=== PATIENT | male | born 1985 | race African-American/Black ===

== ENCOUNTER 2019-02-21 02:29 | Emergency (ER) | payer OTHER ==
[~2019-02-21] VITALS: Ht 170.2 cm; Wt 72.0 kg
[2019-02-21 02:36] VITALS: BP 125/77
[2019-02-21] MEDS ORDERED: BACITRACIN ZINC OINT UDPKT TOP ONE (03:00)
[2019-02-21] MEDS ORDERED: LIDOCAINE HCL/PF 1% 10 MG/ML 5ML VIAL IJ ONE (03:00)
== END 2019-02-21 05:57 | disposition home or self-care (01) ==
LOC: ER 02:29
DX: S41.111A Laceration without foreign body of right upper arm, initial encounter (principal); S60.221A Contusion of right hand, initial encounter; S50.312A Abrasion of left elbow, initial encounter; Y04.0XXA Assault by unarmed brawl or fight, initial encounter; Y93.89 Activity, other specified; Y92.488 Other paved roadways as the place of occurrence of the external cause
CPT/HCPCS: 73130; 99283; A4217; Z7610

== ENCOUNTER 2019-03-04 09:01 | Emergency (ER) | payer MEDICAID, OTHER ==
[~2019-03-04] VITALS: Ht 167.6 cm; Wt 61.0 kg
[2019-03-04 10:00] VITALS: BP 113/77
== END 2019-03-04 10:00 | disposition home or self-care (01) ==
LOC: ER 09:53
DX: S61.411D Laceration without foreign body of right hand, subsequent encounter (principal)
CPT/HCPCS: 99281; Z7610